=== PATIENT | female | born 1985 | race Hispanic/Latino ===

== ENCOUNTER 2024-01-07 13:23 | Emergency (ER) | payer SELFPAY ==
[2024-01-07 13:29] VITALS: BP 117/70; PULSE 82; RESP 18; TEMP 36.9; O2SAT 95; BMI 39.6
--- NOTE | 2024-01-07 19:05 | EDS_ITS ---
HPI HPI - Female History of Present Illness Chief Complaint: Informant: patient Narrative Narrative: Formal Russian interpretation service used. 7 months gestation by dates presents to the ED for evaluation of her . She is from [facility], she has lived in the for the past year. She lives in current city. She states she felt movement in her abdomen 2 months ago and her last menstrual period was 7 months ago. She denies urinary symptoms denies any vaginal bleeding. Does not have established PCP or her OB doctor. She states she has not made time to call. She denies any past medical history. Denies any current medications. Denies alcohol tobacco or illicit drug use. Patient states all her deliveries were vaginal. [facility] Medical History Cholecystectomy planned Home Medications ?Medication ?Instructions ?Recorded ?Last Taken ?Type cephalexin 500 mg capsule 500 mg PO Q12 #10 CAPSULES 01/07/24 Unknown Rx Allergy/AdvReac Type Severity Reaction Status Date / Time No Known Allergies Allergy Verified 01/07/24 13:29 Social History Smoking Status: Never smoker ROS ROS ED Constitutional Constitutional ED: Denies chills, fever(s) or sweats Eyes Eyes: Denies change in vision ENT ENT ED: Denies dysphagia or sore throat Cardiovascular Cardiovascular: Denies chest pain, leg edema, palpitations or racing heartbeat Respiratory/Chest Respiratory/Chest: Denies cough, dyspnea or dyspnea on exertion Gastrointestinal Gastrointestinal: Denies abdominal pain, diarrhea, nausea or vomiting Genitourinary Genitourinary ED: Denies dysuria, hematuria or urinary frequency Musculoskeletal Musculoskeletal: Denies back pain, extremity pain or neck pain Integumentary Denies rash or wounds Neurologic Neurologic: Denies headache(s), paresthesias or weakness EXAM Physical Exam Const Vital Signs: 01/07/24 13:29 01/07/24 21:10 Temperature 98.4 F 98.4 F Temperature Source Temporal Pulse Rate 82 76 Respiratory Rate 18 18 Blood Pressure 117/70 114/71 Blood Pressure Mean 85 85 Pulse Ox 95 96 Oxygen Delivery Method Room Air Positive well nourished and well developed General Appearance ED: well developed and NAD HEENT Reports moist mucous membranes normocephalic and atraumatic Eyes EOMs intact bilaterally and conjunctivae normal General Eye ED: Yes normal appearance of both eyes Neck no lymphadenopathy and supple General: Negative for tenderness Chest Wall Chest: Negative for tenderness Resp normal respiratory effort and normal air movement Effort and Inspection: symmetric chest movement; Negative for respiratory distress Cardio regular rate, regular rhythm and no murmurs Peripheral Pulses: pulses 2+ throughout GI GI Narrative: Gravid abdomen. Bedside ultrasound intrauterine heart tones 120 with movement. Palpation: Negative for guarding or rebound tenderness present Back/Spine no CVA tenderness and no thoracic nor lumbar tenderness Extremity normal to inspection General Extremety ED: Negative for edema or tenderness General Extremity: Negative for edema Neuro oriented x3 and no sensory deficits noted Sensorium / Orientation: awake and alert Skin no rashes or lesions noted and no wounds MDM MDM MDM Narrative Medical decision making narrative: Interventions / MDM: Differential diagnosis: Third trimester Diagnosis considered but do not suspect: N/A My EKG interpretation: N/A Imaging independently reviewed and interpreted by myself: N/A External documents reviewed: N/A Test considered but not ordered:N/A ED course: Patient without complaints, presenting for first-time care. Bedside ultrasound intrauterine with heart tones 120. Ordered for urine. 1909: I discussed with OB on-call Dr. Holt due to her third trimester first visit. She has no complaints. He states that we can do outpatient ultrasound to help the follow-up manage the patient. The directing her to follow-up with [facility]. Therefore currently will send for hCG quant, discussed with nursing debone supervisor, currently no pathology laboratory technologist in-house, do not feel emergent need is necessary. Therefore order was placed in the system for transvaginal ultrasound to be done tomorrow returning as an outpatient. Urine results with signs of infection. Culture sent. She started on Keflex. Translation service used again discussed findings along with plan for outpatient ultrasound. Discussed plan with follow-up with OB as an outpatient. Meds to bed provided for the patient. All questions were answered. Re-evaluation: stable Disposition discussed with patient/family/significant other: Patient Case discussed with consulting clinician: N/A This note was generated with Piczo dictation software. It may contain incorrect words, spelling, and punctuation that were not noted in checking the note before signing. Lab Data Attestation: I reviewed the patient's lab results. Labs: Laboratory Results - last 24 hr 01/07/24 01/07/24 19:12 19:29 HCG, Quant 3170 H Urine Color Yellow Urine Clarity Sl. Cloudy Urine pH 6.0 Ur Specific [place] 1.020 Urine Protein Negative Urine Glucose (UA) Normal Urine Ketones Negative Urine Occult Blood Negative Urine Nitrite Negative Urine Bilirubin Negative Urine Urobilinogen Normal Ur Leukocyte Esterase 100 H Urine RBC 0 SEEN Urine WBC >100 SEEN Ur Squamous Epith Cells 5-10 SEEN Urine Bacteria 3+ Urine Mucus 1+ Discharge Plan Triage Chief Complaint: ED Provider: Basil Sinclair Dx/Rx/DC Orders Clinical Impression: Third trimester , UTI in Instructions: Urinary Tract Infections in Women, 3rd Trimester Changes Prescriptions: New cephalexin 500 mg capsule 500 mg PO Q12 Qty: 10 0RF Primary Care Provider: Care Physician,No Primary Referrals: Brigette Villegas DO [Med Staff - Active Staff] - 1 Week Care Physician,No Primary [Primary Care Provider] - Activity Restrictions/Additional Instructions: Urine with signs of infection. Take antibiotic as prescribed. hCG 3170. Bedside ultrasound intrauterine gestation heart tones 120. Discussed with Dr. Holt. Ultrasound place for you to come back tomorrow morning for an official formal ultrasound. Recommend following up with Dr. Cruz in the next 1 to 2 weeks for further management of your . Print Language: Russian Disposition Disposition: Home, Self Care Discharge Date/Time: 01/07/24 21:11
[2024-01-07 19:24] LABS: Red Blood Cells-Urine 0 SEEN /hpf (0-5)
[2024-01-07 19:25] LABS: Color, Urine Yellow (Yellow); Glucose, Dipstick Normal (Normal); Ketone-Dipstick Negative (Negative); Leukocyte Esterase-Dipstick 100 /ul (Negative); Nitrite-Dipstick Negative (Negative); Occult Blood-Urine Negative /ul (Negative); Protein-Dipstick Negative (Negative); Urine Bilirubin Dipstick Negative (Negative); Urine Clarity Sl. Cloudy (Clear); Urine Urobilinogen Normal (Normal)
[2024-01-07 19:36] LABS: Squamous Epithelial Cells - UA 5-10 SEEN /hpf (5-10)
[2024-01-07 19:37] LABS: Bacteria 3+ /hpf (None Seen); Mucous, Urine 1+ /hpf (<or=2+); White Blood Cells >100 SEEN /hpf (0-5)
[2024-01-07 20:18] LABS: hCG Titer Quant., Serum 3170 mIU/mL (1-3)
[2024-01-07] MEDS: Cephalexin 250 MG Capsule 500 MG PO (20:44)
[2024-01-07 21:10] VITALS: BP 114/71; PULSE 76; RESP 18; TEMP 36.9; O2SAT 96
== END 2024-01-07 21:11 | disposition home or self-care (01) ==
PROVIDERS: Emergency Provider Emergency Medicine; Visit Provider Emergency Medicine
DX: O23.43 Unspecified infection of urinary tract in pregnancy, third trimester (principal); Z90.49 Acquired absence of other specified parts of digestive tract; Z3A.00 Weeks of gestation of pregnancy not specified
CPT/HCPCS: 81001; 84702; 87086; 87088; 99282

== ENCOUNTER → 2024-01-09 | Outpatient (CLI) | payer SELFPAY ==
[2024-01-09 13:05] LABS: Absolute Lymphocyte Count 2.06 X10^3/uL (0.83-4.51); Absolute Neutrophil Count 5.6 X10^3/uL (2.0-7.7); Basophil# 0.02 X10^3/uL; Basophil% 0.2 % (0-1); Eosinophil# 0.16 X10^3/uL; Eosinophils% 1.9 % (0-5); Hematocrit 28.9 % (37-47); Hemoglobin 9.2 g/dL (12.0-15.0); Lymphocyte # 2.06 X10^3/ul (0.83-4.51); Lymphocyte % 24.8 % (19-41); Mean Corp Hgb Conc 31.8 g/dL (32-36); Mean Corpuscular Hgb 26.4 pg (27.0-32.0); Mean Platelet Vol. 9.6 fl (6.2-12.0); Monocyte# 0.44 X10^3/uL; Monocyte% 5.3 % (0-10); NRBC Flagged by Analyzer 0 % (0-5); Neutrophil # 5.55 X10^3/uL (2.7-7.7); Neutrophil % 67.1 % (47-70); Platelet Count 285 K/mm3 (150-450); RBC Distribution Width CV 14.6 % (11.6-14.6); RBC Distribution Width SD 44.1 fl (35.1-43.9); Red Blood Count 3.48 M/mm3 (4.2-5.4); White Blood Count 8.3 K/mm3 (4.4-11.0)
[2024-01-09 14:06] LABS: HIV - WCH Non-Reactive (Nonreactive); Hepatitis B Surface Antigen Non-Reactive (Nonreactive); Hepatitis C Antibody Non-Reactive (Nonreactive); Rubella IgG Equiv (Nonreactive); Syphilis Antibodies Non-reactive
== END | disposition home or self-care (01) ==
PROVIDERS: Referring Provider Obstetrics & Gynecology; Visit Provider Obstetrics & Gynecology
DX: Z34.93 Encounter for supervision of normal pregnancy, unspecified, third trimester (principal)
CPT/HCPCS: 36415; 85025; 86703; 86762; 86780; 86803; 86850; 86870; 86900; 86901; 87340

== ENCOUNTER → 2024-01-10 | Outpatient (CLI) | payer SELFPAY ==
--- NOTE | 2024-01-10 12:48 | US_ITS ---
STUDY: SECOND AND THIRD TRIMESTER OBSTETRICAL ULTRASOUND REASON FOR EXAM: Female, 38 years old Anatomy - already about 7 months LMP: Unknown. TECHNIQUE: Transabdominal TECHNICAL QUALITY: Adequate. PRIOR ULTRASOUND: None. FINDINGS: There is a single intrauterine fetus. The fetus is in a cephalic presentation. There is demonstrated cardiac activity with a heart rate of 137 bpm. There is a normal amniotic fluid volume. The largest amniotic fluid pocket measures 4.1 cm. The amniotic fluid index (HARITHA) is 13.9 cm. The placenta is anterior in location and is not low lying. There are Grade 3 placental changes. The cervix measures 3.9 cm in length. The adnexal regions are not visualized. BIOMETRY: BPD: 8.27 cm: 33 weeks, 2 days HC: 29.89 cm: 33 weeks, 1 days AC: 30.32 cm: 34 weeks, 2 days FL: 6.27 cm: 32 weeks, 3 days CI: 80% FL/BPD: 76% FL/HC: 21% FL/AC: 21% HC/AC: 0.99 age by current US: 33 weeks, 0 days. IVAN by current US: February 28, 2024. Estimated weight: 2255 grams, +/- 338 grams, %. ANATOMY: Gender: Male Cranium: Not well seen due to the head position and age of the fetus. Normal face, nose and lips. Chest: Normal 4-chamber heart. Abdomen/Pelvis: Normal diaphragm. Normal stomach. Not well seen due to head position. Normal kidneys. Normal bladder. Spine: Normal cervical spine. Normal thoracic spine. Normal lumbar spine. Normal sacrum. Extremities: Normal bilateral upper extremities. Normal bilateral lower extremities. US/OB Anatomy Scan IMPRESSION: Single live intrauterine gestation with a mean gestational age of 33 weeks. Anatomical assessment is limited due to the position and age. Electronically Signed: Hong Figueroa MD at 15:05 EDT ,
== END | disposition home or self-care (01) ==
PROVIDERS: Referring Provider Advanced Practice Midwife; Visit Provider Advanced Practice Midwife
DX: Z34.93 Encounter for supervision of normal pregnancy, unspecified, third trimester (principal)
CPT/HCPCS: 76805

== ENCOUNTER → 2024-01-15 | Outpatient (CLI) | payer SELFPAY ==
[2024-01-15 14:12] LABS: Glucose Challenge Gest 1H 50g 101 mg/dL (70-140)
== END | disposition home or self-care (01) ==
PROVIDERS: Referring Provider Advanced Practice Midwife; Visit Provider Advanced Practice Midwife
DX: O09.90 Supervision of high risk pregnancy, unspecified, unspecified trimester (principal); Z3A.00 Weeks of gestation of pregnancy not specified
CPT/HCPCS: 36415; 82950; 87086; 87491; 87591

== ENCOUNTER → 2024-02-13 | Outpatient (CLI) | payer SELFPAY ==
[2024-02-15 20:08] LABS: Chlamydia By Nucleic Acid AMP Negative (Negative); Gonococcus By Nucleic Acid AMP Negative (Negative)
== END | disposition home or self-care (01) ==
LOC: LABSPEC 15:16
PROVIDERS: Referring Provider Obstetrics & Gynecology; Visit Provider Obstetrics & Gynecology
DX: Z20.2 Contact with and (suspected) exposure to infections with a predominantly sexual mode of transmission (principal); O09.529 Supervision of elderly multigravida, unspecified trimester; Z3A.00 Weeks of gestation of pregnancy not specified
CPT/HCPCS: 87081; 87491; 87591

== ENCOUNTER 2024-02-27 12:00 | Inpatient (IN) | payer MEDICAID, SELFPAY ==
[2024-02-27] VITALS (10 sets, daily range): BP systolic 98–115; BP diastolic 56–71; PULSE 66–92; RESP 14–16; TEMP 36.2–37; O2SAT 93–98; BMI 32.8
[2024-02-27 11:54] LABS: ROM Internal Control Test YES-OK TO RESULT pt. (Internal QC)
[2024-02-27 11:56] LABS: ROM Patient Test POSITIVE (Negative)
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
[2024-02-27 12:37] LABS: Absolute Lymphocyte Count 2.43 X10^3/uL (0.83-4.51); Absolute Neutrophil Count 6.2 X10^3/uL (2.0-7.7); Basophil# 0.02 X10^3/uL; Basophil% 0.2 % (0-1); Eosinophil# 0.09 X10^3/uL; Hemoglobin 9.6 g/dL (12.0-15.0); Lymphocyte # 2.43 X10^3/ul (0.83-4.51); Lymphocyte % 25.8 % (19-41); Mean Corpuscular Hgb 23.7 pg (27.0-32.0); Mean Corpuscular Volume 76.5 fL (81-99); Mean Platelet Vol. 9.6 fl (6.2-12.0); Monocyte# 0.51 X10^3/uL; Monocyte% 5.4 % (0-10); NRBC Flagged by Analyzer 0 % (0-5); Neutrophil # 6.22 X10^3/uL (2.7-7.7); Neutrophil % 66.1 % (47-70); Platelet Count 294 K/mm3 (150-450); RBC Distribution Width CV 16.8 % (11.6-14.6); RBC Distribution Width SD 45.4 fl (35.1-43.9); Red Blood Count 4.05 M/mm3 (4.2-5.4); White Blood Count 9.4 K/mm3 (4.4-11.0)
[2024-02-27] MEDS: Lactated Ringers 1,000 ML 50 ML IV (12:47)
[2024-02-27] MEDS: Oxytocin 15 Units/NS 250ml 15 UNITS/250 ML IV.SOLN 2 UNITS IV (13:33)
--- NOTE | 2024-02-27 18:12 | PCM.PN.BLA ---
Progress Note Patient states that pain is increasing but she still does not want an epidural and wishes to continue with labor. current tracing: FHT: 130 Moderate variability reactive no decelerations category I tracing [place]: q2 min Contractions cx : 5-6/80/-3 reviewed tracing abnormalities since last note: no changes A/P: continue pitocin and anticipate soon.
[2024-02-28] VITALS (48 sets, daily range): BP systolic 88–140; BP diastolic 51–72; PULSE 66–136; RESP 14–18; TEMP 36.2–37.3; O2SAT 81–100
[2024-02-28] MEDS: Lactated Ringers 1,000 ML 999 ML IV (04:22)
--- NOTE | 2024-02-28 05:31 | PN_ITS ---
Progress Note patient states that she is finally starting to feel uncomfortable. She now wants an epidural. current tracing: FHT: 140's Moderate variability reactive no decelerations category I tracing [place]: Contractions are not well tracing. last attempt to place an IUPC was unsuccessful due to patient discomfort and very high position of the head. cx: not checked as patient is sitting up for epidural A/P: protracted labor- pit is at 18. plan is to place IUPC when she is comfortable with the epidural and if unchanged,replace the pit bag.
[2024-02-28] MEDS: Oxytocin 15 Units/NS 250ml 15 UNITS/250 ML IV.SOLN 16 UNITS IV (06:31)
--- NOTE | 2024-02-28 07:00 | DCINST_ITS ---
Discharge Instructions Diet Discharge Diet: No restrictions Activity Discharge Activity: Return to Normal Activity, May Not Drive (while taking narcotic pain medications.) and May Shower May resume sexual activity in: 4-6 weeks Dressing / Incision Call your doctor if your incision/area has: Continuous Slow Oozing, Sudden Increased Bleeding, Increased Pain/ Swelling, Increased Redness and Foul Smelling Discharge Follow Up Care Please Follow Up With: Irene Albarado MD When: Call [phone] to make an appointment with your doctor in 6 weeks. If you had elevated blood pressure or 4th degree laceration, you will need to be seen in 2 weeks. Test Results: Test results from this visit will be discussed in further detail at your follow- up appointment, if applicable. Discharge Plan Admission Admit Date/Time: 02/27/24 12:00 Attending Provider: Brigette Villegas Primary Care Provider: Care Physician,Radha Primary Discharge Orders/Prescriptions Prescriptions: No Action NK Referrals / Follow Up: Care Physician,No Primary [Primary Care Provider] - Disposition Disposition (needs filled in before D/C Order can be placed): Home, Self Care
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
[2024-02-28] MEDS: Oxytocin 10 UNITS/ML Vial IM (07:56)
[2024-02-28] MEDS: Acetaminophen 500 MG Tablet 1000 MG PO (20:56)
[2024-02-29 04:45] VITALS: BP 91/53; PULSE 64
[2024-02-29 04:46] VITALS: BP 91/53; PULSE 70; PULSE 71; RESP 16; TEMP 36.7; O2SAT 97
[2024-02-29] MEDS: Naproxen 500 MG Tablet PO (08:23)
[2024-02-29 08:25] VITALS: BP 97/50; PULSE 65
[2024-02-29 08:30] VITALS: BP 97/50; PULSE 65; RESP 16; TEMP 36.9
--- NOTE | 2024-02-29 08:39 | PCM.PN.CNM ---
Subjective Subjective Patient doing well without complaints. Tolerating PO. Ambulating and voiding without difficulty. Feeding well. Denies chest pain, shortness of breath, calf pain/swelling, fevers, chills, lightheadedness. Objective Data Objective Data Vital Signs: Vital Signs Temp Pulse Resp BP Pulse Ox O2 Del Method 98.1 F 65 16 97/50 L 97 Room Air 02/29/24 04:46 02/29/24 08:25 02/29/24 04:46 02/29/24 08:25 02/29/24 04:46 02/29/24 04:46 Oxygen Delivery Method Room Air Weight: 222 lb Body Mass Index (BMI) 32.8 Intake & Output: Intake and Output for Last 24 Hours 02/27/24 02/28/24 02/29/24 23:59 23:59 23:59 Intake Total 457.40 / 457.40 2337.43 / 2337.43 Output Total 900 / 900 900 / 900 Balance -442.60 / -442.60 1437.43 / 1437.43 Lab / Micro Data 02/27/24 12:20 Labs: Laboratory Results - last 24 hr 02/27/24 12:20: Syphilis Total Ab Cancelled Physical Exam Const alert HEENT normocephalic Lymph Lymphatic: no lymphadenopathy noted Chest inspection of chest normal Resp normal respiratory effort and normal air movement Cardio regular rate and regular rhythm GI normal to inspection, nondistended, normoactive bowel sounds Uterus Palpation: uterus fundus firm Extremity normal to inspection and no calf tenderness Skin no rashes or lesions noted Psych mental status grossly normal Assessment & Plan (1) (spontaneous vaginal delivery): COMMENT: MAYA boy PLAN: s/p PPD # 1 1. routine post delivery care 2. breast feeding- support given 3. rh positive 4. rubella immune 5. d/c home today pending SW consult
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
[2024-02-29] MEDS: MEASLES,MUMPS,RUBELLA VACC/PF 0.5 ML SC (13:35)
[2024-02-29] MEDS: FLU VACC 2024-25(6MOS UP)/PF 45 MCG/0.5 ML SYRINGE IM (13:36)
--- NOTE | 2024-03-04 16:00 | NURSING ---
1600- Follow up questions asked via seating captain while family was here for infant's bilirubin check. Pt. reports nursing is going well, and denies any s+s of complications. Encouragement and support given.
[2024-03-04 17:07] LABS: Syphilis Antibodies Non Reactive (Non Reactive)
== END 2024-02-29 14:00 | disposition home or self-care (01) | DRG 560 ==
LOC: WPOUT 12:01 → WP 12:01
PROVIDERS: Admitting Provider Obstetrics & Gynecology; Referring Provider Obstetrics & Gynecology; Visit Provider Obstetrics & Gynecology
DX: O76 Abnormality in fetal heart rate and rhythm complicating labor and delivery (principal); Z37.0 Single live birth; A56.00 Chlamydial infection of lower genitourinary tract, unspecified; O42.92 Full-term premature rupture of membranes, unspecified as to length of time between rupture and onset of labor; Z3A.40 40 weeks gestation of pregnancy; Z90.49 Acquired absence of other specified parts of digestive tract; O98.32 Other infections with a predominantly sexual mode of transmission complicating childbirth; O87.4 Varicose veins of lower extremity in the puerperium; O99.02 Anemia complicating childbirth; Z91.410 Personal history of adult physical and sexual abuse
CPT/HCPCS: 59025; 59050; 84112; 85025; 86780; 86850; 86900; 86901; 90656; 99221; J7120; G0378